=== PATIENT | female | born 1975 | race Two or more races ===

== ENCOUNTER 2017-08-06 08:40 | Outpatient (CLI) | payer OTHER ==
[~2017-08-06 08:40] MED LIST: BTREX; LOVENOX40 MG/0.4 SQ; PREVACID15 MG PO; PROVASMIN PO; ROBINUL FORTE2 MG PO; SYNTHROID50 MCG PO; XARELTO10 MG
== END 2017-08-06 08:42 | disposition home or self-care (01) ==
LOC: NUCLEAR 08:40
DX: D68.61 Antiphospholipid syndrome (principal); D68.51 Activated protein C resistance; E72.11 Homocystinuria; E72.12 Methylenetetrahydrofolate reductase deficiency; I80.291 Phlebitis and thrombophlebitis of other deep vessels of right lower extremity; I80.201 Phlebitis and thrombophlebitis of unspecified deep vessels of right lower extremity; E55.9 Vitamin D deficiency, unspecified; E03.8 Other specified hypothyroidism

== ENCOUNTER 2018-08-26 10:16 | Outpatient (CLI) | payer OTHER | END 2018-08-26 10:19 | disposition home or self-care (01) | LOC: MAMO-SONO 10:16 | DX: N63.10 Unspecified lump in the right breast, unspecified quadrant (principal); N63.20 Unspecified lump in the left breast, unspecified quadrant; Z12.31 Encounter for screening mammogram for malignant neoplasm of breast ==